=== PATIENT | female | born 1995 | race Caucasian/White ===

== ENCOUNTER 2017-09-11 07:04 | Inpatient (IN) | payer OTHER ==
--- NOTE | 2017-09-11 07:59 | P.HPOB ---
History of Present Illness H&P Date: 09/11/17 This is a 21-year-old white female 1 para 0 EDC 09/15/2017 at 39-3/7 weeks' gestation. Patient presents with spontaneous amniorrhexis which began leaking this morning at 0200 hrs. She is having mild irregular contractions to follow. She denies vaginal bleeding. Fetus is been active throughout the . Past obstetric history significant for blood type A+, rubella status nonimmune. VDRL testing, urine culture, hepatitis B surface antigen, HIV testing, gonorrhea and chlamydia cultures all negative. Urine drug screen negative on . One-hour Glucola 107. Group B strep cultures negative. Social history patient is single, she smokes marijuana frequently, last smoked yesterday. She denies tobacco or alcohol use or other drug use. Past medical history is unremarkable. Past surgical history wisdom teeth extracted in the past. Current medications vitamins daily. ALLERGIES none known. On exam this is a pleasant white female, she is 5 foot 5 and half inches, approximately 155 pounds, vital signs are stable and she is afebrile. The general physical exam is within normal limits. The cervix is 3 cm dilated, 80% effaced, -2 station. There is a fore bag noted that is easily ruptured for clear fluid. heart rate is in the 140s with frequent accelerations consistent with reactive NST. Impression: 39-3/7 weeks intrauterine , early spontaneous labor. All signs reassuring. History of marijuana use consistently through the . Plan: Close maternal and surveillance. Oxytocin augmentation per hospital protocol. Analgesic options of been reviewed. Anticipate normal spontaneous vaginal delivery. Review of Systems Constitutional: Reports as per HPI Past Medical History History of Any Multi-Drug Resistant Organisms: None Reported Additional Past Surgical History / Comment(s): Goldsmith teeth extracted in the past Smoking Status: Never smoker Past Drug Use History: Marijuana Medications and Allergies Home Medications Medication Instructions Recorded Confirmed Type Pnv,Calcium 72/Iron/Folic Acid 1 tab PO DAILY 09/11/17 09/11/17 History [ Plus Tablet] Allergies Allergy/AdvReac Type Severity Reaction Status Date / Time No Known Allergies Allergy Verified 09/11/17 07:16 Exam - Vital Signs Vital signs: Intake and Output 09/10/17 09/11/17 09/11/17 22:59 06:59 14:59 Other: Weight 70.76 kg Patient Weight 09/12/17 06:59 Weight 70.76 kg See dictation under HPI please Assessment and Plan Plan: Close maternal and surveillance. Consider oxytocin augmentation as needed. Analgesic options reviewed with the patient. Anticipate normal spontaneous vaginal delivery. Time with Patient: Less than 30
[2017-09-11] MEDS ORDERED: OXYTOCIN 10 UNIT/ML 1 ML VIAL IM PRN (08:19)
[2017-09-11] MEDS ORDERED: LIDOCAINE 1% (PF) 10 MG/ML (30 ML SDV) SQ PRN (08:19)
[2017-09-11] MEDS ORDERED: TERBUTALINE 1 MG/ML VIAL SQ PRN (08:19)
[2017-09-11] MEDS ORDERED: CARBOPROST TROMETHAMINE 250 MCG/ML 1 ML AMP IM PRN (08:19)
[2017-09-11] MEDS ORDERED: METHYLERGONOVINE 0.2 MG/ML 1 ML AMP IM PRN (08:19)
[2017-09-11 08:31] VITALS: BMI 25.9
[2017-09-11] MEDS: LACTATED RINGERS 1,000 ML IV SCH ×2 (08:44→13:00)
[2017-09-11 08:52] LABS: Basophils % (A) 0 %; Eosinophils # (A) 0.1 k/uL (0-0.7); Eosinophils % (A) 1 %; HCT 41.5 % (34.0-46.0); HGB 13.9 gm/dL (11.4-16.0); Lymphocytes # (A) 2.2 k/uL (1.0-4.8); Lymphocytes % (A) 16 %; MCH 30.5 pg (25.0-35.0); MCHC 33.6 g/dL (31.0-37.0); MCV 90.9 fL (80.0-100.0); Mean Platelet Volume 6.8; Monocytes # (A) 0.6 k/uL (0-1.0); Monocytes % (A) 5 %; Neutrophils # (A) 10.8 k/uL (1.3-7.7); Neutrophils % (A) 77 %; Platelet Count 337 k/uL (150-450); RBC 4.57 m/uL (3.80-5.40); RDW 12.5 % (11.5-15.5); WBC 13.9 k/uL (3.8-10.6)
[2017-09-11] MEDS ORDERED: fentaNYL (PF) 50 MCG/ML 5 ML AMP ONE ×2 (10:16→15:04)
[2017-09-11] MEDS ORDERED: SODIUM CHLORIDE 0.9% 100 ML BAG ONE ×2 (10:16→15:04)
[2017-09-11] MEDS ORDERED: BUPIVACAINE (PF) 0.25% 30 ML VIAL ONE ×2 (10:16→15:04)
[2017-09-11] MEDS: OXYTOCIN 20 UNITS/1000 ML NS 1,000 ML IV SCH (11:39)
[2017-09-11] MEDS ORDERED: BUPIVACAINE (PF) 0.25% 25 ML, fentaNYL (PF) 200 MCG in SODIUM CHLORIDE 0.9% 71 ML EPIDURAL ONE (11:47)
[2017-09-11] MEDS ORDERED: CITRIC ACID-SODIUM CITRATE 15 ML CUP PO ONE (14:50)
[2017-09-11] MEDS ORDERED: ceFAZolin IN SWFI 2 GM/20 ML SYRINGE IVP ONE (15:00)
[2017-09-11] MEDS ORDERED: OXYTOCIN 10 UNIT/ML 1 ML VIAL ONE (15:04)
[2017-09-11] MEDS ORDERED: KETOROLAC 30 MG/ML 1 ML VIAL ONE (15:04)
[2017-09-11] MEDS ORDERED: MORPHINE SULFATE (PF) 0.3 MG/0.3 ML SYR ONE (15:04)
[2017-09-11] MEDS ORDERED: ONDANSETRON 4 MG/2 ML VIAL ONE (15:04)
[2017-09-11] MEDS ORDERED: diphenhydrAMINE 50 MG CAP PO PRN (15:47)
[2017-09-11] MEDS ORDERED: IBUPROFEN 600 MG TAB PO PRN (15:47)
[2017-09-11] MEDS ORDERED: ACETAMINOPHEN TAB 325 MG TAB PO PRN (15:47)
[2017-09-11] MEDS ORDERED: ONDANSETRON 4 MG/2 ML VIAL IVP PRN (15:47)
[2017-09-11] MEDS ORDERED: NALOXONE 0.4 MG/ML 1 ML VIAL IV PRN (15:47)
[2017-09-11] MEDS ORDERED: ZOLPIDEM 5 MG TAB PO PRN (15:47)
[2017-09-11] MEDS ORDERED: METOCLOPRAMIDE 5 MG/ML 2 ML VIAL IVP PRN (15:47)
[2017-09-11] MEDS ORDERED: SIMETHICONE 80 MG CHEWABLE PO PRN (15:47)
[2017-09-11] MEDS ORDERED: diphenhydrAMINE 25 MG CAP PO PRN (15:47)
[2017-09-11] MEDS ORDERED: diphenhydrAMINE 50 MG/ML 1 ML VIAL IVP PRN ×2 (15:47)
--- NOTE | 2017-09-11 15:47 | P.OP ---
Date of Procedure: 09/11/17 Preoperative Diagnosis: Nonreassuring heart tones Postoperative Diagnosis: Same, left occiput transverse position Procedure(s) Performed: Primary low transverse section Anesthesia: epidural Surgeon: Rosey Mckenna [employer] #1: Leidy Moreno Estimated Blood Loss (ml): 250 IV fluids (ml): 900 Urine output (ml): 100 Pathology: other (Placenta) Condition: stable Disposition: PACU Indications for Procedure: Prolonged late decelerations despite position changes, IV fluid resuscitation, oxygen. Operative Findings: Liveborn male in the left occiput transverse position. scores 69 and 9 at one and 5 and 10 minutes. weight 6 lbs. 14 oz. or 3120 g. Description of Procedure: Consider at the bedside for nonreassuring heart tones was discussed thoroughly with the patient and her boyfriend. Decision is made to proceed with . Bicitra is given, Hodges catheter placed, antibiotics given. Vaginal prep was performed. Patient is brought to the operating room and placed in the dorsal supine position with left lateral uterine displacement. The previously placed epidural is topped off. The appropriate timeout is performed to assure proper patient and procedural identification. The abdomen is prepped and draped in the usual sterile fashion. The analgesia is checked and noted to be adequate. A low transverse skin incision is made in this is carried down through the shallow layer of subcutaneous tissue measuring approximately 1 cm. Fascia is isolated, scored and extended bilaterally with curved Salinas scissors. Peritoneum is next identified and incised, there is no bowel or bladder involvement. Bladder blade is placed over the dome of the bladder. A low transverse uterine incision is made in this is carried down through the myometrium. Clear fluid is noted upon entering the uterine cavity. The ' s head is delivered in the left occiput transverse position. There is no nuchal cord noted. The oropharynx, nasopharynx, and external nares were all bulb suctioned on the abdomen. Patient is officially delivered of a liveborn male infant at 1513 hrs. Umbilical cord is doubly clamped and ligated, he is handed to waiting nurses for evaluation where scores of 69 and 9 at one and 5 and 10 minutes respectively are given. The placenta is delivered manually, it is inspected and noted to be intact with trivascular cord at 1514 hrs. The uterus is massaged. The uterus is externalized. It is swept clean with a sterile sponge to avoid any retained products of conception. The edges of the incision are grasped with Bowers clamps. Uterus is closed in a two-step fashion, first layer running locking, second layer imbricated, both with 0 Vicryl suture. Oxygenation is excellent. Bilateral tubes and ovaries are noted to be normal. No uterine defects or fibroids are appreciated. Abdomen is suctioned with suction on guard and the uterus is gently placed back into the abdominal cavity. Bilateral gutters are inspected and cleaned. Uterine incision is once again inspected and noted to be hemostatically intact. Peritoneum was allowed to close by secondary intention. Fascia is closed in a running layer of 0 Vicryl suture, over ligation in the midline. Subcutaneous tissue is irrigated, noted to be clean and dry. It is reapproximated with 3-0 Vicryl in a running fashion. 4-0 undyed Monocryl suture is used in a subcuticular fashion for final skin closure. Steri-Strips and Mastisol are applied to the wound. Uterus is massaged for small amount of lochia. Hodges is noted to be draining clear urine, urine output 100 mL's. Patient is brought back to the recovery room in good condition with stable vital signs including a blood pressure of 104/59, pulse 75 , 97% O2 saturation. Patient and her boyfriend are requesting circumcision for their infant son. He weighs 3120 g or 6 lbs. 14 oz. and is doing well.
[2017-09-11] MEDS: KETOROLAC 30 MG/ML 1 ML VIAL IVP SCH (23:30)
[2017-09-12] MEDS: LACTATED RINGERS 1,000 ML IV SCH ×5 (02:45→20:32)
[2017-09-12] MEDS: KETOROLAC 30 MG/ML 1 ML VIAL IVP SCH ×4 (02:46→20:30)
[2017-09-12] MEDS: SENNOSIDES-DOCUSATE SODIUM 1 EACH TAB PO SCH ×3 (02:47→20:31)
--- NOTE | 2017-09-12 07:40 | P.PN ---
Subjective Progress Note Date: 09/12/17 Principal diagnosis: Postoperative day #1 Slept well, no complaints of pain. Minimal to moderate lochia rubra. No complaints Objective - Vital Signs Vital signs: Vital Signs Temp 98 F 09/12/17 04:00 Pulse 56 L 09/12/17 04:00 Resp 18 09/12/17 04:00 BP 110/59 09/12/17 04:00 Pulse Ox 97 09/12/17 04:00 Intake & Output 09/11/17 09/12/17 09/12/17 18:59 06:59 18:59 Intake Total 3500 Output Total 600 800 Balance 2900 -800 Weight 70.76 kg Intake: IV 3500 Lactated Ringers 1,000 ml 3500 @ 125 mls/hr IV .Q8H AZEB Rx#:[id number] Output: Urine 600 800 Uretheral (Hodges) 400 Other: Voiding Method Indwelling Catheter - Constitutional General appearance: Present: average body habitus, cooperative - EENT Eyes: Present: PERRLA - Neck Neck: Present: normal ROM Thyroid: bilateral: normal size - Respiratory Respiratory: bilateral: CTA - Cardiovascular Rhythm: regular - Gastrointestinal General gastrointestinal: Present: normal bowel sounds - Integumentary Integumentary: Present: normal - Neurologic Neurologic: Present: CNII-XII intact - Musculoskeletal Musculoskeletal: Present: gait normal - Psychiatric Psychiatric: Present: A&O x's 3, appropriate affect, intact judgment & insight - Labs CBC & Chem 7: 09/11/17 08:30 Labs: Abnormal Lab Results - Last 24 Hours (Table) 09/11/17 Range/Units 08:30 WBC 13.9 H (3.8-10.6) k/uL Neutrophils # 10.8 H (1.3-7.7) k/uL Assessment and Plan Assessment: Postoperative day #1, doing well. Plan: Continue postoperative care. Circumcision this morning. Likely discharge home tomorrow. Time with Patient: Less than 30
[2017-09-12 08:03] LABS: Basophils % (A) 0 %; Eosinophils # (A) 0.1 k/uL (0-0.7); Eosinophils % (A) 1 %; HCT 35.2 % (34.0-46.0); HGB 11.9 gm/dL (11.4-16.0); Lymphocytes # (A) 2.1 k/uL (1.0-4.8); Lymphocytes % (A) 14 %; MCH 30.5 pg (25.0-35.0); MCHC 33.9 g/dL (31.0-37.0); MCV 90.2 fL (80.0-100.0); Mean Platelet Volume 7.4; Monocytes # (A) 0.7 k/uL (0-1.0); Monocytes % (A) 5 %; Neutrophils # (A) 11.9 k/uL (1.3-7.7); Neutrophils % (A) 80 %; Platelet Count 246 k/uL (150-450); RDW 12.6 % (11.5-15.5); WBC 14.9 k/uL (3.8-10.6)
[2017-09-12] MEDS ORDERED: MEASLES-MUMPS-RUBELLA VACC/PF 12,500 UNIT/0.5 ML VIAL SQ ONE (09:06)
[2017-09-12] MEDS: Acetaminophen-Codeine 300-30mg TAB PO PRN (18:16)
[2017-09-12] MEDS: OXYTOCIN 20 UNITS/1000 ML NS 1,000 ML IV SCH (20:32)
[2017-09-13] MEDS: SENNOSIDES-DOCUSATE SODIUM 1 EACH TAB PO SCH (08:07)
[2017-09-13] MEDS: Acetaminophen-Codeine 300-30mg TAB PO PRN (08:07)
[2017-09-13 08:41] VITALS: BP 130/79; PULSE 73; RESP 17; TEMP 97.5
--- NOTE | 2017-09-13 10:47 | P.DS ---
Providers Date of admission: 09/11/17 07:40 Expected date of discharge: 09/13/17 Attending physician: Rosey Mckenna - Discharge Diagnosis(es) (1) Non-reassuring heart rate or rhythm affecting management of fetus Current Visit: Yes Status: Acute (2) Spontaneous rupture of membranes Current Visit: Yes Status: Acute (3) S/P section Current Visit: Yes Status: Acute (4) 39 weeks gestation of Current Visit: Yes Status: Acute Hospital Course: This is a 21-year-old 1 now para 1 woman who presented at 39+ weeks gestation with spontaneous rupture of membranes. She was admitted and underwent Pitocin induction of labor. She did progress however developed nonreassuring heart rate tracing remote from delivery therefore she underwent a primary low transverse section. Findings at the time of surgery were significant for a male infant with Apgars of 6 at 1 minute 9 at 5 minutes and 9 at 10 minutes. The patient's course was unremarkable. By post operative day #1 she was ambulating and voiding without difficulty and was tolerating a general diet. Her pain was controlled with oral pain medications. And her postoperative hemoglobin was stable. By postoperative day #2 she continued to do very well. Her lochia was minimal and her incision appeared intact and well-healing. Her pain was well-controlled. She was therefore discharged home with routine instructions for postoperative care and follow-up. Patient Condition at Discharge: Good Plan - Discharge Summary Discharge Rx Participant: Yes New Discharge Prescriptions: No Action Pnv,Calcium 72/Iron/Folic Acid [ Plus Tablet] 1 tab PO DAILY Discharge Medication List Pnv,Calcium 72/Iron/Folic Acid [ Plus Tablet] 1 tab PO DAILY 09/11/17 [ History]
== END 2017-09-13 12:00 | disposition home or self-care (01) | DRG 765 ==
LOC: FBPOP 07:04 → 4FBP 07:40
PROVIDERS: ADMIT Obstetrics & Gynecology; ATTEND Obstetrics & Gynecology
PROC: 10D00Z1 Extraction of Products of Conception, Low, Open Approach (ICD-10-PCS; principal; 2017-09-11 15:15)
PROC: 3E0R3NZ Introduction of Analgesics, Hypnotics, Sedatives into Spinal Canal, Percutaneous Approach (ICD-10-PCS; principal; 2017-09-11 15:15)
DX: O76 Abnormality in fetal heart rate and rhythm complicating labor and delivery (principal); O99.324 Drug use complicating childbirth; F12.90 Cannabis use, unspecified, uncomplicated; Z37.0 Single live birth; Z3A.39 39 weeks gestation of pregnancy
CPT/HCPCS: 59025; 84112; 85025; 88307; 90471; 90707; 99213

== ENCOUNTER 2023-01-28 15:57 | Outpatient (CLI) | payer OTHER ==
[2023-01-28 16:47] VITALS: BP 118/67; PULSE 74; RESP 16; TEMP 98.3
--- NOTE | 2023-01-28 18:34 | P.MSEPDOC ---
Presenting Problems - Arrival Data Date of Arrival on Unit: 01/28/23 Time of Arrival on Unit: 15:57 Mode of Transport: Wheelchair - Complaint OB-Reason for Admission/Chief Complaint: Other Comment: ABD pain Medical History - Information : 2 Para: 1 Term: 1 : 0 Abortions: Spontaneous or Elective: 0 Number of Living Children: 1 - Gestational Age Gestational Age by NOAH (wks/days): 26 Weeks and 2 Days - History Complications: Prior Review of Systems - Review of Systems Constitutional: No problems Breast: No problems ENT: No problems Cardiovascular: No problems Respiratory: No problems Gastrointestinal: No problems Genitourinary: No problems Musculoskeletal: No problems Neurological: No problems Skin: No problems Vital Signs - Temperature Temperature: 98.3 F Temperature Source: Temporal Artery Scan - Pulse Pulse Oximetery Pulse Rate: 74 Pulse Assessment Method: Pulse Oximetry - Respirations Respiratory Rate: 16 Oxygen Delivery Method: Room Air O2 Sat by Pulse Oximetry: 99 - Blood Pressure Right Arm Blood Pressure: 118/67 Blood Pressure Mean: 84 Blood Pressure Source: Automatic Cuff Medical Screen Scoring - Assessment - Baby A Baseline FHR: 125 Heart Rate - NICHD Category: Category I (Normal) NST: Reactive Physician Notification - Physician Notified Physician Notified Date: 01/28/23 Physician Notified Time: 16:30 Physician: Anastasiya Salinas Order Received: Yes - Notification Comment Comment: Dr. Salinas called, report given on maternal complaints of constant abdominal pain. around her umbilicus since this AM. No contractions noted via TOCO, abdomen is soft to. palpation, FHTs are category 1, vitals all WNL. Pt has an appointment with her OB. tomorrow. Orders to discharge pt home with inst ructions to try heat for the discomfort. and follow up with her OB. Maternal Triage Index - Maternal Triage Index Presenting for scheduled procedure w/no complaint: No - Stat/Priority 1 Stat Priority 1: No - Urgent/Priority 2 Urgent Priority 2: No - Prompt/Priority 3 Prompt Priority 3: No - Non-Urgent/Priority 4 Non-Urgent Priority 4: Yes Criteria Met for Priority 4: 26 2/7wks, abdominal pain Disposition - Disposition OB Disposition: Discharge to home Discharge Date: 01/28/23 Discharge Time: 16:36 I agree with the RN Medical Screening Exam: Yes Case reviewed; plan agreed upon as documented in EMR&OBIX.: Yes Diagnosis: PERIUMBILICAL PAIN
== END 2023-01-28 16:36 | disposition home or self-care (01) ==
LOC: FBPOP 15:57
PROVIDERS: ATTEND Obstetrics & Gynecology
DX: O26.892 Other specified pregnancy related conditions, second trimester (principal); R10.33 Periumbilical pain; Z3A.26 26 weeks gestation of pregnancy
CPT/HCPCS: 99213